=== PATIENT | male | born 1985 | race African-American/Black ===

== ENCOUNTER 2021-07-16 11:11 | Inpatient (IN) | payer OTHER ==
[2021-07-16] MEDS ORDERED: THIAMINE HCL 200 MG/2 ML VIAL IVPB ONE (11:49)
[2021-07-16] MEDS ORDERED: SODIUM CHLORIDE 0.9% 500 ML INFUS.BAG IV ONE (11:49)
[2021-07-16] MEDS ORDERED: FOLIC ACID 1 MG TABLET (FP) PO ONE (11:49)
[2021-07-16] MEDS ORDERED: THIAMINE HCL 200 MG/2 ML VIAL ONE (12:13)
[2021-07-16] MEDS ORDERED: FOLIC ACID 1 MG TABLET (FP) ONE (12:13)
[2021-07-16] MEDS ORDERED: chlordiazePOXIDE HCL 25 MG CAPSULE PO ONE ×2 (12:22→12:45)
[2021-07-16] MEDS ORDERED: chlordiazePOXIDE HCL 25 MG CAPSULE ONE (12:46)
[2021-07-16 12:58] LABS: BASO % 1.1 % (0-2.0); EOS % 0.4 % (0-4.5); HEMATOCRIT 38.6 % (35.4-49); HEMOGLOBIN 13.2 GM/dL (11.7-16.9); LYMPH % 23.8 % (8-40); MCH 31.9 pg (25.7-33.7); MCHC 34.2 g/dl (32.0-35.9); MEAN CELL VOLUME 93.4 fl (80-96); MEAN PLT VOLUME 7.2 fl (7.5-11.1); MONO % 10.7 % (3.8-10.2); PLATELET COUNT 194 10^3/uL (134-434); RBC 4.13 M/mm3 (4.00-5.60); WHITE BLOOD COUNT 3.9 K/mm3 (4.0-10.0)
[2021-07-16 14:32] LABS: ALBUMIN 4.4 g/dl (3.4-5.0); ALK PHOS 73 U/L (45-117); ANION GAP 9 MMOL/L (8-16); BLOOD UREA NITROGEN 7.1 mg/dL (7-18); CALCIUM 9.4 mg/dL (8.5-10.1); CHLORIDE 98 mmol/L (98-107); CO2 31 mmol/L (21-32); CREATININE 0.7 mg/dL (0.55-1.3); GLUCOSE,RANDOM 90 mg/dL (74-106); SGOT/AST 76 U/L (15-37); SGPT/ALT 52 U/L (13-61); SODIUM 138 mmol/L (136-145)
[2021-07-16 16:57] LABS: MAGNESIUM 1.2 mg/dL (1.8-2.4); PHOSPHOROUS 3.4 mg/dL (2.5-4.9)
[2021-07-16] MEDS ORDERED: MAGNESIUM SULF 50% (8.12 MEQ/2 ML-1 GM VIAL) IVPB ONE (17:01)
[2021-07-16] MEDS ORDERED: MAGNESIUM 1GM/D5W - 1 GM/100 ML IVPB IVPB ONE (17:35)
[2021-07-17] MEDS: DEXTROSE 5%-0.45% SALINE 1,000 ML IV SCH (02:15)
[2021-07-17] MEDS: chlordiazePOXIDE HCL 10 MG CAPSULE PO SCH ×3 (06:05→21:30)
[2021-07-17 08:35] LABS: BASO % 0.7 % (0-2.0); EOS % 1.2 % (0-4.5); HEMOGLOBIN 13.1 GM/dL (11.7-16.9); LYMPH % 31.8 % (8-40); MCH 31.8 pg (25.7-33.7); MCHC 33.6 g/dl (32.0-35.9); MEAN CELL VOLUME 94.7 fl (80-96); MEAN PLT VOLUME 8.1 fl (7.5-11.1); MONO % 9.9 % (3.8-10.2); NEUT % 56.4 % (42.8-82.8); PLATELET COUNT 201 10^3/uL (134-434); RBC 4.12 M/mm3 (4.00-5.60); RDW 13.7 % (11.9-15.9); WHITE BLOOD COUNT 4.9 K/mm3 (4.0-10.0)
[2021-07-17 08:58] LABS: CALCIUM 9.1 mg/dL (8.5-10.1)
[2021-07-17 08:59] LABS: ALBUMIN 3.9 g/dl (3.4-5.0)
[2021-07-17 09:02] LABS: CREATININE 0.7 mg/dL (0.55-1.3)
[2021-07-17 09:04] LABS: BILIRUBIN,TOTAL 1.2 mg/dL (0.2-1); TOT PROT 7.2 g/dl (6.4-8.2)
[2021-07-17] MEDS ORDERED: THIAMINE HCL 100 MG TABLET (FP) ONE (11:17)
[2021-07-17] MEDS ORDERED: ASPIRIN COATED 81 MG TABLET.EC ONE (11:17)
[2021-07-17] MEDS ORDERED: FOLIC ACID 1 MG TABLET (FP) ONE (11:18)
[2021-07-17] MEDS ORDERED: ENOXAPARIN NA (PORCINE) 40 MG/0.4 ML DISP.SYRIN SQ ONE (11:18)
[2021-07-17] MEDS: ASPIRIN COATED 81 MG TABLET.EC PO SCH (11:33)
[2021-07-17] MEDS: FOLIC ACID 1 MG TABLET (FP) PO SCH (11:33)
[2021-07-17] MEDS: ENOXAPARIN NA (PORCINE) 40 MG/0.4 ML DISP.SYRIN SQ SCH (11:33)
[2021-07-17] MEDS: THIAMINE HCL 100 MG TABLET (FP) PO SCH (11:34)
[2021-07-17] MEDS ORDERED: chlordiazePOXIDE 5 MG CAPSULE ONE ×2 (17:48→21:04)
[2021-07-17 18:35] VITALS: BMI 24.4
[2021-07-18] MEDS ORDERED: chlordiazePOXIDE 5 MG CAPSULE ONE ×2 (05:03→13:34)
[2021-07-18] MEDS: DEXTROSE 5%-0.45% SALINE 1,000 ML IV SCH (05:28)
[2021-07-18] MEDS: chlordiazePOXIDE HCL 10 MG CAPSULE PO SCH ×2 (05:29→14:07)
[2021-07-18] MEDS: ENOXAPARIN NA (PORCINE) 40 MG/0.4 ML DISP.SYRIN SQ SCH (10:20)
[2021-07-18] MEDS: ASPIRIN COATED 81 MG TABLET.EC PO SCH (10:20)
[2021-07-18] MEDS: THIAMINE HCL 100 MG TABLET (FP) PO SCH (10:20)
[2021-07-18] MEDS: FOLIC ACID 1 MG TABLET (FP) PO SCH (10:20)
[2021-07-18 10:27] LABS: CHOLESTEROL 247 mg/dL (50-200); TRIGLYCERIDES 62 mg/dL (0-150)
[2021-07-18 10:28] LABS: LDL CHOLESTEROL (ONLY SJRH) 90 mg/dL (5-100)
[2021-07-18 10:31] LABS: HDL CHOLESTEROL 128 mg/dL (40-60)
[2021-07-18] MEDS: chlordiazePOXIDE 5 MG CAPSULE PO SCH (21:06)
[2021-07-19] MEDS: chlordiazePOXIDE 5 MG CAPSULE PO SCH ×3 (05:46→21:04)
[2021-07-19] MEDS: DEXTROSE 5%-0.45% SALINE 1,000 ML IV SCH (05:46)
[2021-07-19] MEDS ORDERED: PT OWN MED DRAWER 7, Y5N ONE (12:48)
[2021-07-19] MEDS: ENOXAPARIN NA (PORCINE) 40 MG/0.4 ML DISP.SYRIN SQ SCH (12:55)
[2021-07-19] MEDS: THIAMINE HCL 100 MG TABLET (FP) PO SCH (12:56)
[2021-07-19] MEDS: ASPIRIN COATED 81 MG TABLET.EC PO SCH (12:56)
[2021-07-19] MEDS: FOLIC ACID 1 MG TABLET (FP) PO SCH (12:56)
[2021-07-20] MEDS: chlordiazePOXIDE 5 MG CAPSULE PO SCH ×2 (06:01→13:55)
[2021-07-20] MEDS: THIAMINE HCL 100 MG TABLET (FP) PO SCH (10:14)
[2021-07-20] MEDS: ENOXAPARIN NA (PORCINE) 40 MG/0.4 ML DISP.SYRIN SQ SCH (10:14)
[2021-07-20] MEDS: ASPIRIN COATED 81 MG TABLET.EC PO SCH (10:14)
[2021-07-20] MEDS: FOLIC ACID 1 MG TABLET (FP) PO SCH (10:14)
[2021-07-20 13:53] VITALS: BP 118/72; PULSE 81; TEMP 98.9
== END 2021-07-20 16:48 | disposition home or self-care (01) | DRG 775 ==
LOC: JER 11:11 → JERBED 16:34 → J4S 07-17 17:26
PROVIDERS: ADMIT Internal Medicine; ATTEND Internal Medicine
DX: F10.230 Alcohol dependence with withdrawal, uncomplicated (principal); R00.2 Palpitations; R07.89 Other chest pain; R42 Dizziness and giddiness; F17.210 Nicotine dependence, cigarettes, uncomplicated
CPT/HCPCS: 36415; 71046-TC-FY; 80053; 80061; 82550; 82553; 83735; 84100; 84443; 84484; 85025; 93005; 93010; 93306-TC; 93351; 99285-25; C9803; U0003; U0005

== ENCOUNTER 2022-03-28 12:18 | Inpatient (IN) | payer OTHER ==
[2022-03-28] MEDS ORDERED: VANCOMYCIN 1 GM in D5W (PRE-DOCKED) 1,000 MG/250 ML IVPB ONE (15:02)
[2022-03-28] MEDS ORDERED: CEFEPIME HCL/D5W 2 GM/50 ML BAG IVPB ONE (15:02)
[2022-03-28] MEDS ORDERED: KETOROLAC TROMETHAMINE 30 MG/1 ML VIAL IVPUSH ONE (15:10)
[2022-03-28] MEDS ORDERED: KETOROLAC TROMETHAMINE 30 MG/1 ML VIAL ONE (15:29)
[2022-03-28] MEDS ORDERED: VANCOMYCIN/WATER FOR INJ (PEG) 1,000 MG/200 ML BAG IVPB ONE ×2 (15:29→16:30)
[2022-03-28] MEDS ORDERED: CEFEPIME 2 GM/100 ML BAG IVPB ONE (15:29)
[2022-03-28] MEDS ORDERED: DIPHTH,PERTUSS(ACELL),TET 0.5 ML DISP.SYRIN IM ONE ×2 (15:44→15:50)
[2022-03-28 16:54] LABS: BASO % 0.7 % (0-2.0); EOS % 0.3 % (0-4.5); HEMOGLOBIN 12.4 GM/dL (11.7-16.9); LYMPH % 16.9 % (8-40); MCH 31.6 pg (25.7-33.7); MCHC 34.3 g/dl (32.0-35.9); MEAN CELL VOLUME 92.1 fl (80-96); MEAN PLT VOLUME 6.5 fl (7.5-11.1); NEUT % 71.1 % (42.8-82.8); PLATELET COUNT 401 10^3/uL (134-434); RBC 3.91 M/mm3 (4.00-5.60); RDW 13.4 % (11.9-15.9); WHITE BLOOD COUNT 9.2 K/mm3 (4.0-10.0)
[2022-03-28 17:05] LABS: ALBUMIN 3.4 g/dl (3.4-5.0); BLOOD UREA NITROGEN 9.2 mg/dL (7-18); CALCIUM 8.9 mg/dL (8.5-10.1)
[2022-03-28 17:09] LABS: BILIRUBIN,TOTAL 0.2 mg/dL (0.2-1); CREATININE 0.5 mg/dL (0.55-1.3); TOT PROT 7.4 g/dl (6.4-8.2)
[2022-03-28 17:15] LABS: LACTIC ACID 3.2 mmol/L (0.4-2.0)
[2022-03-28] MEDS ORDERED: SODIUM CHLORIDE 0.9% 500 ML INFUS.BAG IV ONE ×2 (17:19→17:23)
[2022-03-29 00:50] VITALS: BMI 25.4
[2022-03-29] MEDS ORDERED: PIPERACILLIN/TAZOB 3.375 GM 3.375 GM in DEXTROSE 5%-WATER - 50 ML IVPB ONE ×2 (01:06→08:00)
[2022-03-29 01:23] LABS: MAGNESIUM 1.5 mg/dL (1.8-2.4)
[2022-03-29 01:27] LABS: PHOSPHOROUS 3.4 mg/dL (2.5-4.9)
[2022-03-29] MEDS ORDERED: VANCOMYCIN 1 GM/200 ML PREMIX BAG IVPB ONE ×2 (03:45→15:00)
[2022-03-29] MEDS ORDERED: ACETAMINOPHEN 1000 MG/100 ML BAG IVPB PRN ×2 (04:14→13:30)
[2022-03-29] MEDS ORDERED: LORazepam 1 MG TABLET PO PRN ×2 (05:52→13:30)
[2022-03-29] MEDS ORDERED: FOLIC ACID INJECTION - 1 MG, THIAMINE HCL 100 MG, MULTIVIT INJECTION ADULT 10 ML in SOD... IVPB ONE ×2 (07:30→14:15)
[2022-03-29] MEDS ORDERED: THIAMINE HCL 200 MG/2 ML VIAL IVPB ONE (09:45)
[2022-03-29] MEDS ORDERED: CLINDAMYCIN 600MG PREMIX IVPB 600 MG/50 ML BAG IVPB ONE (09:45)
[2022-03-29 09:55] LABS: COCAINE, UR NEGATIVE (NEGATIVE); PHENCYCLIDINE,URINE NEGATIVE (NEGATIVE); URINE BENZODIAZEPINES NEGATIVE (NEGATIVE)
[2022-03-29 09:56] LABS: METHADONE, UR NEGATIVE (NEGATIVE)
[2022-03-29 09:58] LABS: OPIATES, URI POSITIVE (NEGATIVE); URINE AMPHETAMINES NEGATIVE (NEGATIVE); URINE BARBITURATES NEGATIVE (NEGATIVE)
[2022-03-29] MEDS ORDERED: MULTIVITAMINS (DAILY MVI) TABLET (FP) PO SCH (10:00)
[2022-03-29] MEDS ORDERED: FOLIC ACID 1 MG TABLET (FP) PO SCH (10:00)
[2022-03-29] MEDS ORDERED: LORazepam 1 MG TABLET PO SCH (11:00)
[2022-03-29] MEDS ORDERED: MIDAZOLAM HCL 2 MG/2 ML SINGLE DOSE VIAL ONE (11:26)
[2022-03-29] MEDS ORDERED: ONDANSETRON 4 MG/2 ML VIAL ONE (11:26)
[2022-03-29] MEDS ORDERED: KETOROLAC TROMETHAMINE 30 MG/1 ML VIAL ONE (11:26)
[2022-03-29] MEDS ORDERED: LIDOCAINE HCL/PF 2% SDV 5ML VIAL ONE (11:26)
[2022-03-29] MEDS ORDERED: PROPOFOL 40 ML ONE (11:26)
[2022-03-29] MEDS ORDERED: ONDANSETRON 4 MG/2 ML VIAL IVPUSH PRN ×2 (11:32→13:30)
[2022-03-29] MEDS ORDERED: ACETAMINOPHEN 1000 MG/100 ML BAG IVPB ONE (11:33)
[2022-03-29] MEDS ORDERED: LACTATED RINGERS SOLUTION 1,000 ML IV SCH ×2 (11:45→13:30)
[2022-03-29] MEDS ORDERED: DEXAMETHASONE SOD PHOSPHATE 4 MG/1 ML VIAL ONE (12:27)
[2022-03-29] MEDS: ACETAMINOPHEN 1000 MG/100 ML BAG IVPB ONE ×2 (13:15→13:35)
[2022-03-29] MEDS ORDERED: ACETAMINOPHEN INJECTION 100 ML IVPB ONE (13:21)
[2022-03-29 14:56] VITALS: RESP 18
[2022-03-29 17:00] LABS: INR 1.08 (0.83-1.09); PROTHROMBIN TIME (PATIENT) 12.4 SEC (9.7-13.0)
[2022-03-29 17:04] LABS: HEMATOCRIT 36.8 % (35.4-49); HEMOGLOBIN 12.3 GM/dL (11.7-16.9); MCH 31.3 pg (25.7-33.7); MCHC 33.4 g/dl (32.0-35.9); MEAN CELL VOLUME 93.9 fl (80-96); MEAN PLT VOLUME 7.2 fl (7.5-11.1); PLATELET COUNT 383 10^3/uL (134-434); RBC 3.92 M/mm3 (4.00-5.60); RDW 13.1 % (11.9-15.9); WHITE BLOOD COUNT 7.6 K/mm3 (4.0-10.0)
[2022-03-29] MEDS: LORazepam 1 MG TABLET PO SCH ×2 (17:04→22:22)
[2022-03-29 17:33] LABS: ALBUMIN 2.9 g/dl (3.4-5.0); CALCIUM 8.7 mg/dL (8.5-10.1)
[2022-03-29 17:35] LABS: BLOOD UREA NITROGEN 4.9 mg/dL (7-18); MAGNESIUM 1.6 mg/dL (1.8-2.4)
[2022-03-29 17:37] LABS: CREATININE 0.5 mg/dL (0.55-1.3); PHOSPHOROUS 3.2 mg/dL (2.5-4.9)
[2022-03-29] MEDS: PIPERACILLIN/TAZOB 4.5 GM 4.5 GM in DEXTROSE 5%-WATER 100 ML IVPB SCH (17:37)
[2022-03-29 17:39] LABS: BILIRUBIN,TOTAL 0.5 mg/dL (0.2-1); TOT PROT 6.6 g/dl (6.4-8.2)
[2022-03-29] MEDS: VANCOMYCIN/WATER FOR INJ (PEG) 1,000 MG/200 ML BAG IVPB SCH (18:37)
[2022-03-29] MEDS ORDERED: MAGNESIUM OXIDE 400 MG TABLET (FP) PO ONE (19:01)
[2022-03-29 23:52] LABS: HIV INTERPRETATION NEGATIVE (NEGATIVE)
[2022-03-30] MEDS: PIPERACILLIN/TAZOB 4.5 GM 4.5 GM in DEXTROSE 5%-WATER 100 ML IVPB SCH ×3 (02:00→17:56)
[2022-03-30] MEDS: VANCOMYCIN/WATER FOR INJ (PEG) 1,000 MG/200 ML BAG IVPB SCH ×2 (04:55→17:56)
[2022-03-30] MEDS: LORazepam 1 MG TABLET PO SCH ×4 (04:56→23:01)
[2022-03-30] MEDS: oxyCODONE HCL 5 MG TABLET PO PRN ×2 (11:45→21:48)
[2022-03-30] MEDS: FOLIC ACID 1 MG TABLET (FP) PO SCH (11:46)
[2022-03-30] MEDS: ACETAMINOPHEN 325 MG TABLET (FP) PO PRN ×2 (11:46→21:46)
[2022-03-30] MEDS: MULTIVITAMINS (DAILY MVI) TABLET (FP) PO SCH (11:47)
[2022-03-30 12:31] LABS: BASO % 0.5 % (0-2.0); EOS % 0.8 % (0-4.5); HEMOGLOBIN 11.8 GM/dL (11.7-16.9); LYMPH % 18.3 % (8-40); MCH 31.3 pg (25.7-33.7); MCHC 33.7 g/dl (32.0-35.9); MEAN PLT VOLUME 7.1 fl (7.5-11.1); MONO % 6.1 % (3.8-10.2); NEUT % 74.3 % (42.8-82.8); PLATELET COUNT 369 10^3/uL (134-434); RBC 3.77 M/mm3 (4.00-5.60); RDW 13.4 % (11.9-15.9)
[2022-03-30 13:52] LABS: CALCIUM 8.8 mg/dL (8.5-10.1)
[2022-03-30 13:53] LABS: BLOOD UREA NITROGEN 5.8 mg/dL (7-18)
[2022-03-30 13:56] LABS: CREATININE 0.5 mg/dL (0.55-1.3)
[2022-03-30] MEDS: COLLAGENASE CLOSTRIDIUM HIST. 30 GRAMS TUBE TP SCH (14:44)
[2022-03-31] MEDS: PIPERACILLIN/TAZOB 4.5 GM 4.5 GM in DEXTROSE 5%-WATER 100 ML IVPB SCH ×2 (01:29→10:29)
[2022-03-31] MEDS: VANCOMYCIN/WATER FOR INJ (PEG) 1,000 MG/200 ML BAG IVPB SCH (03:15)
[2022-03-31] MEDS: LORazepam 1 MG TABLET PO SCH ×2 (04:41→12:51)
[2022-03-31] MEDS: oxyCODONE HCL 5 MG TABLET PO PRN (04:43)
[2022-03-31] MEDS ORDERED: LORazepam 1 MG TABLET PO SCH (05:00)
[2022-03-31 09:10] VITALS: BP 111/61; PULSE 74; TEMP 98.5
[2022-03-31] MEDS: MULTIVITAMINS (DAILY MVI) TABLET (FP) PO SCH (10:30)
[2022-03-31] MEDS: FOLIC ACID 1 MG TABLET (FP) PO SCH (10:32)
[2022-03-31] MEDS: COLLAGENASE CLOSTRIDIUM HIST. 30 GRAMS TUBE TP SCH (12:50)
[2022-04-01] MEDS ORDERED: LORazepam 0.5 MG TABLET PO PRN ×2
[2022-04-01] MEDS ORDERED: LORazepam 0.5 MG TABLET PO SCH ×2 (05:00)
[2022-04-02] MEDS ORDERED: LORazepam 0.5 MG TABLET PO ONE ×2 (05:00)
== END 2022-03-31 13:50 | disposition home or self-care (01) | DRG 383 ==
LOC: JER 12:18 → JERBED 16:24 → J5S 03-29 01:16
PROVIDERS: ADMIT Hospitalist; ATTEND Internal Medicine
PROC: 0JBP0ZZ Excision of Left Lower Leg Subcutaneous Tissue and Fascia, Open Approach (ICD-10-PCS; principal; 2022-03-29 14:00)
DX: L03.116 Cellulitis of left lower limb (principal); F10.20 Alcohol dependence, uncomplicated; E87.1 Hypo-osmolality and hyponatremia; S71.152A Open bite, left thigh, initial encounter; B95.61 Methicillin susceptible Staphylococcus aureus infection as the cause of diseases classified elsewhere; F19.10 Other psychoactive substance abuse, uncomplicated; E87.2 Acidosis; I96 Gangrene, not elsewhere classified; L08.9 Local infection of the skin and subcutaneous tissue, unspecified; L97.828 Non-pressure chronic ulcer of other part of left lower leg with other specified severity; W50.3XXA Accidental bite by another person, initial encounter; Y92.89 Other specified places as the place of occurrence of the external cause; Y99.8 Other external cause status
CPT/HCPCS: 0241U-QW; 36415; 73562-TC-LT-FY; 73700-TC-RT; 80048; 80053; 80307; 82962; 83605; 83735; 84100; 85025; 85027; 85610; 86803; 86850; 86900; 86901; 87040; 87070; 87076; 87077; 87186; 87205; 87340; 87389; 87517; 88304-TC; 90715; 93005; 93010; 94760; 99285-25